=== PATIENT | male | born 1975 | race Two or more races ===

== ENCOUNTER 2021-06-24 13:51 | Emergency (ER) | payer OTHER ==
[~2021-06-24] VITALS: Ht 180.3 cm; Wt 86.2 kg
[2021-06-24] MEDS ORDERED: TAMS0.4C PO (16:01)
[2021-06-24] MEDS ORDERED: KETO10TA2 PO (16:38)
== END 2021-06-24 16:41 | disposition home or self-care (01) ==
LOC: ER 13:51
DX: N20.0 Calculus of kidney (principal)